=== PATIENT | female | born 2000 | race Caucasian/White ===

== ENCOUNTER 2021-01-10 09:58 | Emergency (ER) | payer OTHER ==
[~2021-01-10] VITALS: Ht 162.6 cm; Wt 95.0 kg
--- NOTE | 2021-01-10 10:25 | PHYS DOC ---
Adult General Chief Complaint Chief Complaint: ABDOMINAL PAIN HPI HPI Patient is a 20-year-old female who presents to the emergency department concerning lower abdominal pain since early october with intermittent rectal bleeding, noticed dark red vaginal discharge since this past Friday. Patient reports noticing bright red blood on the toilet paper when wiping after having a BM last night. Patient reports feeling nauseated this morning and vomited x1 noticing food particles, denies nausea at this time. Patient reports her abdominal pain a 7-8 out of 10 on a 1-10 pain scale constant since early October of this year. Patient denies urinary pressure, urinary burning, inc reased urinary frequency, denies STI concerns. Denies rashes or lesions to her vaginal area. Denies a family history of PCOS, denies history of hemorrhoids, patient does report a history of iron deficiency anemia. Patient reports using the Nexplanon control otherwise is on no prescription or [id number] medications. Patient reports her last menstrual cycle started 10 days ago, is lasting longer than normal, denies soaking pads, reports using panty liners and tampons. Patient reports she has been worked up for rectal bleeding and abdominal pain in the past and was scheduled for a colonoscopy at her residence in [facility] however did not make her colonoscopy appointment related to moving to the [facility] reporting her is in the [employer] and she moved here related to his relocation assignment, patient reports increased life stress related to currently getting a divorce from her marriage. Patient denies homicidal or suicidal ideation. Patient denies chest pains, shortness of breath, chest or nasal congestion, denies syncope or near syncopal episodes, denies dizziness. Patient denies other physical complaints or physical concerns. Review of Systems Review of Systems 14 body systems of review of systems have been reviewed. See HPI for pertinent positives and negative responses, otherwise all other systems are negative, nonpertinent or noncontributory. Constitutional: Negative except as outlined in HPI above. Skin: Negative except as outlined in HPI above. Eyes: Negative except as outlined in HPI above. HENT: Negative except as outlined in HPI above. Respiratory: Negative except as outlined in HPI above. Cardiovascular: Negative except as outlined in HPI above. GI: Negative except as outlined in HPI above. : Negative except as outlined in HPI above. Musculoskeletal: Negative except as outlined in HPI above. Integument: Negative except as outlined in HPI above. Neurologic: Negative except as outlined in HPI above. Endocrine: Negative except as outlined in HPI above. Lymphatic: Negative except as outlined in HPI above. Psychiatric: Negative except as outlined in HPI above. Physical Exam Physical Exam Constitutional: Well developed, well nourished, no acute distress, non-toxic appearance. 20-year-old female in no apparent distress. Patient's complaint level of pain exceeds physical appearance and examination. HENT: Normocephalic, atraumatic. Eyes: Conjunctiva normal, no discharge. Neck: Normal range of motion. Cardiovascular: Distal cap refill less than 2 seconds, no cyanosis appreciated. Lungs & Thorax: Patient is in no respiratory distress, no adventitious lung sounds appreciated. Abdomen: Bowel sounds normal, soft, no masses, no pulsatile masses. No bruising or skin discoloration of the abdomen. Pain elicited to palpation to the left lower and right lower abdomen, no rebound tenderness, positive psoas sign, negative McBurney's point tenderness, negative Anthony sign. No surgical scars appreciated. Skin: Warm, dry, no erythema, no rash. Back: No tenderness, no CVA tenderness. Extremities: No tenderness, no cyanosis, no clubbing, ROM intact, no edema. Neurologic: Alert and oriented X 3, normal motor function, normal sensory function, no focal deficits noted. Psychologic: Affect normal, judgement normal, mood normal. : Pelvic examination performed by ED attending Dr. Epstein and female med student Marija, reported no lesions or abnormalities of the external vaginal structures, no obvious discharge from vagina noted externally, speculum examination noted dark red discharge at cervical os, the cervical os is closed, vaginal mucosa pink without abnormalities appreciated, deferred bimanual examination, rectal examination noted no external or internal hemorrhoids, no internal masses appreciated, no appreciable blood, stool brown without signs of bleeding, Hemoccult study obtained and sent to lab. Patient tolerated well. Current Patient Data Lab Results Laboratory Tests Test 01/10/21 10:20 01/10/21 10:40 01/10/21 10:46 01/10/21 10:58 Urine Collection Type Unknown Urine Color Yellow Urine Clarity Hazy Urine pH 5.5 Urine Specific Pelham >=1.030 Urine Protein Neg Urine Glucose (UA) Neg mg/dL Urine Ketones (Stick) Neg mg/dL Urine Blood Small Urine Nitrite Neg Urine Bilirubin Neg Urine Urobilinogen Dipstick 0.2 mg/dL Urine Leukocyte Esterase Neg Urine RBC 1-2 /HPF Urine WBC 1-4 /HPF Urine Squamous Epithelial Cells Many /LPF Urine Bacteria 0 /HPF Urine Mucus Mod /LPF White Blood Count 7.3 x10^3/uL Red Blood Count 4.92 x10^6/uL Hemoglobin 14.6 g/dL Hematocrit 43.3 % Mean Corpuscular Volume 88 fL Mean Corpuscular Hemoglobin 30 pg Mean Corpuscular Hemoglobin Concent 34 g/dL Red Cell Distribution Width 13.3 % Platelet Count 265 x10^3/uL Neutrophils (%) (Auto) 73 % Lymphocytes (%) (Auto) 11 % Monocytes (%) (Auto) 6 % Eosinophils (%) (Auto) 10 % Basophils (%) (Auto) 0 % Neutrophils # (Auto) 5.4 x10^3uL Lymphocytes # (Auto) 0.8 x10^3/uL Monocytes # (Auto) 0.4 x10^3/uL Eosinophils # (Auto) 0.7 x10^3/uL Basophils # (Auto) 0.0 x10^3/uL Sodium Level 138 mmol/L Potassium Level 3.7 mmol/L Chloride Level 104 mmol/L Carbon Dioxide Level 23 mmol/L Anion Gap 11 Blood Urea Nitrogen 9 mg/dL Creatinine 0.8 mg/dL Estimated GFR (Cockcroft-Gault) 89.7 BUN/Creatinine Ratio 11 Glucose Level 89 mg/dL Calcium Level 8.7 mg/dL Total Bilirubin 1.0 mg/dL Aspartate Amino Transf (AST/SGOT) 21 U/L Alanine Aminotransferase (ALT/SGPT) 29 U/L Alkaline Phosphatase 88 U/L Total Protein 7.6 g/dL Albumin 3.7 g/dL Albumin/Globulin Ratio 0.9 Lipase 85 U/L Bedside Urine HCG, Qualitative hcg negative Stool Occult Blood Positive Current Medications Medications (Trade) Dose Ordered Sig/Shukri Route PRN Reason Start Time Stop Time Status Last Admin Dose Admin Sodium Chloride 1,000 ml @ 1,000 mls/hr 1X ONCE IV 01/10/21 11:30 01/10/21 12:29 DC 01/10/21 12:19 Ketorolac Tromethamine (Toradol 30mg Vial) 30 mg 1X ONCE IVP 01/10/21 11:30 01/10/21 11:31 DC 01/10/21 12:20 Ondansetron HCl (Zofran) 4 mg 1X ONCE IVP 01/10/21 11:30 01/10/21 11:31 DC 01/10/21 12:20 Iohexol (Omnipaque 300 Mg/ml) 75 ml 1X ONCE IV 01/10/21 11:30 01/10/21 11:31 DC 01/10/21 11:44 Info (Do NOT chart on this entry -- for MONITORING) 1 each PRN DAILY PRN MC SEE COMMENTS 01/10/21 11:30 01/12/21 11:29 EKG EKG [] Radiology/Procedures Radiology/Procedures REASON: LOWER ABD PAIN, RECTAL BLEED PROCEDURE: CT ABD PELV W/ IV CONTRST ONLY EXAM: Abdomen and pelvis CT with intravenous contrast. HISTORY: Pain. Rectal bleeding. TECHNIQUE: Computed tomographic images of the abdomen and pelvis were obtained following the administration of intravenous contrast. Multiplanar reformatting was performed. *One or more of the following individualized dose reduction techniques were utilized for this examination: 1. Automated exposure control. 2. Adjustment of the mA and/or kV according to patient size. 3. Use of iterative reconstruction technique. COMPARISON: None. FINDINGS: Evaluation of the lower thorax is unremarkable. No hepatic lesion is seen. The gallbladder, pancreas, spleen, adrenal glands and kidneys are unremarkable. There is no appendicitis. There is no bowel obstruction. The bladder, uterus and right ovary are unremarkable. There is a physiologic dominant left ovarian follicle measuring 1.7 cm. The aorta is normal in caliber. There is no lymphadenopathy. There is no acute or suspicious osseous finding. IMPRESSION: No acute abdominal or pelvic finding. Electronically signed by: Ruth Squires MD (01/10/2021 11:55 AM) [id number] Heart Score C/O Chest Pain: No Risk Factors: Risk Factors: DM, Current or recent (<one month) smoker, HTN, HLP, family history of CAD, obesity. Risk Scores: Risk Factors: DM, Current or recent (<one month) smoker, HTN, HLP, family his tory of CAD, obesity. Course & Med Decision Making Course & Med Decision Making Pertinent Labs and Imaging studies reviewed. (See chart for details) 20-year-old female, vital signs reviewed, presents emerged department concerning low abdomen pain with vaginal bleeding and rectal bleeding. Patient's physical examination concerning for abdominal process. Pelvic examination performed by Dr. Epstein and medical student Marija consistent with menstrual cycle bleeding, wet prep/GC chlamydia culture sent to lab. No other abnormalities were appreciated, fecal occult blood sample sent to the lab, it was noted that the stool was brown and soft, no moshe blood appreciated, there were no external or internal hemorrhoids appreciated. Will order CBC, CMP, lipase, CT abdomen pelvis with IV contrast. CT abdomen pelvis negative for acute process, fecal occult blood positive however may have been contaminated from menstrual cycle bleeding as stool was brown and soft. The patient's serum labs unremarkable, the patient is not anemic, her urine was not infected, she is not . Patient was given 1 L normal saline, 30 mg Toradol for pain, 4 mg prophylactic nausea treatment. Upon reevaluation of the patient and discussion of findings, the patient reports she is pain-free and feels much better now, discussed with patient working diagnosis of abnormal uterine bleeding may be related to recent stressful life events, discussed with patient strict follow-up with primary care physician and [facility], discussed with primary care physician GI consult and follow-up as this was the planning at her previous [facility] prior to her relocation to [facility]. Patient is amenable to ED discharge planning. Discussed with the patient all findings and diagnostic testing as well as the need to follow-up with their primary care provider for further evaluation and treatment or return to the ED if any new or worsening symptoms. Strict return precautions were also discussed at length, the patient voiced understanding and agreement with the discharge planning. The patient was nontoxic in appearance, in no apparent distress, and hemodynamically stable at the time of disposition. Dragon Disclaimer Dragon Disclaimer This electronic medical record was generated, in whole or in part, using a voice recognition dictation system. Departure Departure: Impression: Primary Impression: Abnormal uterine bleeding Additional Impression: Abdominal pain Disposition: HOME / SELF CARE / HOMELESS Condition: GOOD Referrals: PCP,NO (PCP) Patient Instructions: Abdominal Pain, Abnormal Uterine Bleeding Additional Instructions: You were seen today in the emergency department for concerns of rectal bleeding and vaginal bleeding and abdominal pains. A CT scan of your abdomen and pelvis did not reveal any concerning signs, a pelvic examination noted uterine bleeding consistent with menstrual cycle bleeding, cultures were obtained and sent to lab for GC and chlamydia, these are pending at this time and you will be contacted if either come back positive, a wet prep was sent, the results did not show any yeast infection, trichomonas infection, or bacterial vaginosis infection, or PID. The blood work did not show any signs of infection, you are not anemic. As we discussed, please follow-up with your doctor at the [facility] for ongoing evaluation and further follow-up with GI specialty related to your history of abdominal pains and intermittent rectal bleeding. If you are unable to secure a timely appointment with your primary care physician at the [facility] to the [facility] [address], you may consider using the [facility] located at [facility] [address] [place] [address], their telephone number is area code [phone]. Please follow-up with a doctor this week, this is a must. We also discussed abnormal uterine bleeding, please follow-up with an [employer] soon for ongoing abnormal uterine bleeding problems. Thank you for visiting our Emergency Department. It was a pleasure taking care of you today in the emergency department and we appreciate you trusting us with your care. If any additional problems come up don't hesitate to return to visit us. Please follow up with your primary care provider so they can plan additional care if needed and know about the problem that you had. If symptoms worsen come back to the Emergency Department. Any concerning symptoms that start such as chest pain, shortness of air, weakness or numbness on one side of the body, running high fevers or any other concerning symptoms return to the ER. EMERGENCY DEPARTMENT GENERAL DISCHARGE INSTRUCTIONS Thank you for coming to [facility] (ED) today and trusting us with you care. We trust that you had a positivie experience in our Emergency Department. If you wish to speak to the department management, you may call the director at [phone]. YOUR FOLLOW UP INSTRUCTIONS ARE FOLLOWS: 1. Do you have a private Doctor? If you do not have a private doctor, please ask for a resource list of physicians or clinics that may be able to assist you with follow up care. 2. The Emergency Physician has interpreted your x-rays. The X-Ray specialist will also review them. If there is a change in the findings, you will be notified in 48 hours when at all possible. 3. A lab test or culture has been done, your results will be reviewed and you will be notified if you need a change in treatment. ADDITIONAL INSTRUCTIONS AND INFORMATION: 1. Your care today has been supervised by a physician who is specially trained in emergency care. Many problems require more than one evaluation for a complete diagnosis and treatment. We recommend that you schedule your follow up appointment as recommended to ensure complete treatment of you illness or injury. If you are unable to obtain follow up care and continue to have a problem, or if your condition worsens, we recommend that you return to the ED. 2. We are not able to safely determine your condition over the phone nor are we able to give sound medical advice over the phone. For these safety reasons, if you call for medical advice we will ask you to come to the ED for further evaluation. 3. If you have any questions regarding these discharge instructions please call the ED at [phone]. SAFETY INFORMATION: In the interest of safety, wellness, and injury prevention; we encourage you to wear your sealbelt, if you smoke; quite smoking, and we encourage family to use a protective helmet for bicycling and other sporting events that present an increased risk for head injury. IF YOUR SYMPTOMS WORSEN OR NEW SYMPTOMS DEVELOP, OR YOU HAVE CONCERNS ABOUT YOUR CONDITION; OR IF YOUR CONDITION WORSENS WHILE YOU ARE WAITING FOR YOUR FOLLOW UP APPOINTMENT; EITHER CONTACT YOUR PRIMARY CARE DOCTOR, THE PHYSICIAN WHOSE NAME AND NUMBER YOU WERE GIVEN, OR RETURN TO THE ED IMMEDIATELY. Problem Qualifiers Additional Impression: Abdominal pain Abdominal location: lower abdomen, unspecified Qualified Codes: R10.30 - Lower abdominal pain, unspecified ULICES COMBS APRN Jan 10, 2021 10:25
[2021-01-10 11:02] LABS: BASO % 0 % (0-3); EOS # 0.7 x10^3/uL (0.0-0.7); EOS % 10 % (0-3); HEMATOCRIT 43.3 % (36.0-47.0); HEMOGLOBIN 14.6 g/dL (12.0-15.5); LYMPH # 0.8 x10^3/uL (1.0-4.8); LYMPH % 11 % (24-48); MEAN CORPUSCULAR HEMOGLOBIN 30 pg (25-35); MEAN CORPUSCULAR HGB CONC 34 g/dL (31-37); MEAN CORPUSCULAR VOLUME 88 fL (79-100); MONO # 0.4 x10^3/uL (0.0-1.1); MONO % 6 % (0-9); NEUT # 5.4 x10^3uL (1.8-7.7); NEUT % 73 % (31-73); PLATELET COUNT 265 x10^3/uL (140-400); RED BLOOD COUNT 4.92 x10^6/uL (3.50-5.40); RED CELL DISTRIBUTION WIDTH 13.3 % (11.5-14.5); WHITE BLOOD COUNT 7.3 x10^3/uL (4.0-11.0)
[2021-01-10 11:19] LABS: CALCIUM 8.7 mg/dL (8.5-10.1); CREATININE 0.8 mg/dL (0.6-1.0); GFR 89.7; POTASSIUM 3.7 mmol/L (3.5-5.1)
[2021-01-10 11:22] LABS: ALBUMIN 3.7 g/dL (3.4-5.0); ALBUMIN/GLOBULIN RATIO 0.9 (1.0-1.7); TOTAL PROTEIN 7.6 g/dL (6.4-8.2)
[2021-01-10] MEDS ORDERED: ONDANSETRON PF 4 MG/2 ML VIAL. IVP ONE (11:30)
[2021-01-10] MEDS ORDERED: CONTRAST GIVEN. MC PRN (11:30)
[2021-01-10] MEDS ORDERED: IOHEXOL 300 MG/ML 75 ML VIAL. IV ONE (11:30)
[2021-01-10] MEDS ORDERED: IV NORMAL SALINE 1,000ML 1,000 ML IV ONE (11:30)
[2021-01-10] MEDS ORDERED: KETOROLAC 30 MG/ML VIAL. IVP ONE (11:30)
[2021-01-10 11:46] LABS: COLOR,URINE YELLOW
[2021-01-10 11:47] LABS: BACTERIA,URINE 0 /HPF (0-FEW); BILIRUBIN,URINE NEG (NEG); CLARITY,URINE HAZY; GLUCOSE,URINE NEG (NEG); NITRITE,URINE NEG (NEG); SQUAMOUS EPITHELIAL CELL,UR MANY /LPF; UROBILINOGEN,URINE 0.2 mg/dL (0.2 mg/dL)
--- NOTE | 2021-01-10 11:57 | RAD ---
EXAM: Abdomen and pelvis CT with intravenous contrast. HISTORY: Pain. Rectal bleeding. TECHNIQUE: Computed tomographic images of the abdomen and pelvis were obtained following the administ ration of intravenous contrast. Multiplanar reformatting was performed. *One or more of the following individualized dose reduction techniques were utilized for this examina tion: 1. Automated exposure control. 2. Adjustment of the mA and/or kV according to patient size. 3. Use of iterative reconstruction technique. COMPARISON: None. FINDINGS: Evaluation of the lower thorax is unremarkable. No hepatic lesion is seen. The gallbladder, pancreas, spleen, adrenal glands and kidneys are unremarkable. There is no appendicitis. There is no bowel obstruction. The bladder, uterus and right ovary are unremarkable. There is a physiologic nicholas nant left ovarian follicle measuring 1.7 cm. The aorta is normal in caliber. There is no lymphadenopa thy. There is no acute or suspicious osseous finding. IMPRESSION: No acute abdominal or pelvic finding. Electronically signed by: Ruth Squires MD (01/10/2021 11:55 AM) [id number]
[2021-01-10 12:41] LABS: FECAL OB PT POSITIVE (NEG)
[2021-01-10 13:24] VITALS: BP 142/81
[2021-01-11 22:08] LABS: CHLAMYDIA PROBE Negative (Negative)
== END 2021-01-10 13:38 | disposition home or self-care (01) ==
LOC: ER 09:58
DX: N93.8 Other specified abnormal uterine and vaginal bleeding (principal); R11.2 Nausea with vomiting, unspecified; N93.9 Abnormal uterine and vaginal bleeding, unspecified; R10.31 Right lower quadrant pain; R10.32 Left lower quadrant pain
CPT/HCPCS: 74177; 80053; 81001; 81025; 82274; 83690; 85025; 87491; 87591; 96361; 96374; 96375; 99285; J1885; J2405; J7030; Q0111; Q9967